=== PATIENT | male | born 1965 | race Caucasian/White ===

== ENCOUNTER 2019-12-05 17:26 | Inpatient (IN) | payer MEDICARE, OTHER ==
[~2019-12-05] VITALS: Ht 167.6 cm; Wt 90.7 kg
[2019-12-05] MEDS ORDERED: ACETAMINOPHEN ES 500 MG TABLET ONE (17:35)
[2019-12-05] MEDS ORDERED: ACETAMINOPHEN 325 MG TABLET PO ONE (17:45)
[2019-12-05 17:48] LABS: BASOPHILS % (AUTO) 0.3 % (0.0-2.0); HEMATOCRIT 38.1 % (36.7-47.1); HEMOGLOBIN 12.6 g/dL (12.5-16.3); LYMPHOCYTES # (AUTO) 0.6 K/uL (20.0-40.0); LYMPHOCYTES % (AUTO) 4.7 % (20.5-51.5); MEAN CORPUSCULAR HEMOGLOBIN 27.3 uug (23.8-33.4); MEAN CORPUSCULAR HGB CONC 33 g/dL (32.5-36.3); MEAN CORPUSCULAR VOLUME 82.5 fL (73.0-96.2); MONOCYTES # (AUTO) 1.2 K/uL (2.0-10.0); MONOCYTES % (AUTO) 9.3 % (0.0-11.0); NEUTROPHILS % (AUTO) 85.7 % (38.5-71.5); PLATELET COUNT (AUTO) 215 K/uL (152-348); RED BLOOD CELL COUNT(AUTO) 4.62 MIL/uL (4.06-5.63); WHITE BLOOD COUNT (AUTO) 12.9 K/uL (3.6-10.2)
[2019-12-05 17:54] LABS: CARBON DIOXIDE 25 mmol/L (21-32); CHLORIDE 102 mmol/L (98-107); GLUCOSE 224 mg/dL (74-106); POTASSIUM 3.7 mmol/L (3.5-5.1); UREA NITROGEN, BLOOD 16 mg/dL (7-18)
[2019-12-05 17:59] LABS: ETHANOL < 3 MG/DL (0-0)
--- NOTE | 2019-12-05 18:01 | NUR ---
Patient attempted to void by urinal for urine specimen, no urine@this time.
[2019-12-05 18:07] LABS: ALANINE AMINOTRANSFERASE 20 U/L (16-63); ALKALINE PHOSPHATASE 52 U/L (50-136); ASPARTATE AMINOTRANSFERASE 19 U/L (15-37); BILIRUBIN,DIRECT 0.1 mg/dL (0.0-0.2); BILIRUBIN,TOTAL 0.6 mg/dL (0.2-1.0); TOTAL PROTEIN, SERUM 7.5 g/dL (6.4-8.2)
[2019-12-05 18:10] LABS: ACETAMINOPHEN < 2.0 ug/mL (10-30)
--- NOTE | 2019-12-05 18:12 | NUR ---
Patient is eating dinner tray with good appetite.
--- NOTE | 2019-12-05 18:47 | NUR ---
Still for urine specimen, water and no suger-juice provided.
--- NOTE | 2019-12-05 18:51 | NUR ---
Patient is brushing his teeth.
--- NOTE | 2019-12-05 19:04 | NUR ---
Patient in bed, no acute distress noted. vss
--- NOTE | 2019-12-05 19:51 | NUR ---
Brothers Number (Ppocv)
[2019-12-05 19:57] LABS: *BILIRUBIN,URIN 1+ (NEGATIVE); *CLARITY,URINE CLOUDY (CLEAR); *COLOR,URINE DARK YELLOW (YELLOW); *KETONES,URINE TRACE (NEGATIVE); *UROBILINOGEN,URINE 0.2 E.U./dl (NORMAL); LEUKOCYTE ESTERASE ,URINE TRACE (NEGATIVE); NITRITE, URINE NEGATIVE (NEGATIVE); PH,URINE 5.5 (5.0-8.0); UGLUCOSE NEGATIVE (NEGATIVE)
[2019-12-05 20:00] LABS: *BLOOD, URINE TRACE (NEGATIVE)
[2019-12-05 20:02] LABS: SQUAMOUS EPITHELIAL CELL,UR FEW /HPF (NONE SEEN)
[2019-12-05 20:03] LABS: CALCIUM OXALATE CRYSTALS,UR FEW /HPF (NONE SEEN); COARSE GRANULAR CASTS,URINE 0-3 /LPF; MUCUS,URINE MANY /LPF (0-FEW); URINE AMORPHOUS URATE MODERATE /HPF
--- NOTE | 2019-12-05 20:03 | NUR ---
Patient in bed, no acute distress noted. VSS
[2019-12-05 20:06] LABS: *AMPHETAMINE, URINE NEGATIVE (NEGATIVE); *BARBITURATE, URINE NEGATIVE (NEGATIVE); *CANNABINOID, URINE NEGATIVE (NEGATIVE); *COCCAINE, URINE NEGATIVE (NEGATIVE); *OPIATE, URINE NEGATIVE (NEGATIVE); *PHENCYCLIDINE SCREEN,URINE NEGATIVE (NEGATIVE)
--- NOTE | 2019-12-05 20:15 | NUR ---
Called Ashely @ [phone]. Notified her that we need crisis eval for this patient.
--- NOTE | 2019-12-05 20:32 | NUR ---
Spoke to Dea COLLIER, she is coming to evaluate the patient. U is expecting this patient.
--- NOTE | 2019-12-05 20:47 | NUR ---
Security called for standby due to patient frequently leaving his ER room, walking into other patients rooms, and not following staff safety instructons.
[2019-12-05] MEDS ORDERED: OLANZAPINE 5 MG TABLET PO ONE (21:15)
[2019-12-05] MEDS ORDERED: OLANZAPINE 5 MG TABLET ONE (21:15)
--- NOTE | 2019-12-05 21:22 | NUR ---
Report given to Anneliese SAWANT
[2019-12-05] MEDS ORDERED: MAGNESIUM HYDROXIDE 30 ML LIQUID UDC PO PRN (22:00)
[2019-12-05] MEDS ORDERED: MAG HYDROX/AL HYDROX/SIMETH 30 ML LIQUID UDC PO PRN (22:00)
[2019-12-05] MEDS ORDERED: ACETAMINOPHEN 325 MG TABLET PO PRN (22:00)
[2019-12-05 22:20] VITALS: BP 116/68
--- NOTE | 2019-12-05 23:00 | NUR ---
RECEIVED PATIENT FROM [facility] AT 21:00 ON A GURNEY ON A 72HOUR HOLD. DR MCLAIN IS THE PSYCHIATRIST AND DR FALL IS THE AUDIO TECHNICIAN. HE IS A/O X3 AND AMBULATORY.HE CAME FROM [facility] AND WAS SAID TO BE EASILY ANGERED, THREW WATER AT STAFF AND PATIENTS AND BECAME INCREASINGLY AGITATED.HE ADMITTED TO SOME OF THE ABOVE BUT EXPLAINED THAT 'THEY SAY OFFENSIVE THINGS TO ME WHICH MAKE THE SITUATION UNBEARABLE" HE DENIES HEARING VOICES OR BEING SUICIDAL. HE AGREED TO CONTRACT FOR SAFETY, AND WAS ADVISED OF THE HOLD, AND GPS PACKET GIVEN. SKIN INTACT EXCEPT FOR 2 SMALL ABRASIONS ON THE LEFT INDEX AND AND MIDDLE FINGERS.ZOLPIDEM 10MG AT 23;10.PATIENT THEN WENT TO SLEEP THEREAFTER. VISUAL CHECKS MADE ON HIM FOR SAFETY.
[2019-12-05] MEDS: ZOLPIDEM 5 MG TABLET PO PRN (23:12)
[2019-12-06] MEDS: LORAZEPAM 1 MG TABLET PO PRN ×2 (04:31→14:33)
--- NOTE | 2019-12-06 06:31 | NUR ---
PATIENT SLEPT FOR ABOUT TILL 4;00 HRS WHEN HE STARTED PACING AND MAKING REQUESTS TO MAKE PHONE CALLS, WATCH TV,LISTEN TO MUSIC AND BEING AGITATED. HE WAS GIVEN TAB ATIVAN AT 04;30.WE ALSO CALLED DR MARIE FROM [facility] AT 22;30 AND HE PROMISED TO RECONCILE THE MEDICATIONS. BUT ITS ITS STILL NOT YET IN.
[2019-12-06 08:30] VITALS: BP 103/69
[2019-12-06] MEDS: CEphaleXIN 500 MG CAPSULE PO SCH ×2 (13:45→17:00)
[2019-12-06] MEDS: busPIRone 5 MG TABLET PO SCH ×2 (14:15→17:00)
[2019-12-06] MEDS ORDERED: BISACODYL 10 MG SUPP.RECT RC PRN (15:15)
[2019-12-06] MEDS ORDERED: TRAMADOL HCL 50 MG TABLET PO PRN (15:15)
[2019-12-06] MEDS ORDERED: MAGNESIUM HYDROXIDE 30 ML LIQUID UDC PO PRN (15:15)
[2019-12-06] MEDS ORDERED: ONDANSETRON HCL 4 MG TABLET PO PRN (15:15)
[2019-12-06] MEDS ORDERED: MAG HYDROX/AL HYDROX/SIMETH 30 ML LIQUID UDC PO PRN (15:15)
[2019-12-06] MEDS ORDERED: FLEET ENEMA 133 ML BOTTLE RC PRN (15:15)
[2019-12-06] MEDS ORDERED: ACETAMINOPHEN 325 MG TABLET PO PRN (15:15)
[2019-12-06 15:47] VITALS: BP 132/78
[2019-12-06] MEDS: METFORMIN HCL 850 MG TABLET PO SCH (17:00)
[2019-12-06] MEDS: METOPROLOL TARTRATE 25 MG TABLET PO SCH (17:00)
[2019-12-06] MEDS: CLONAZEPAM 0.5 MG TABLET PO SCH (17:00)
[2019-12-06 20:00] VITALS: BP 123/75
[2019-12-06] MEDS: ATORVASTATIN 10 MG TABLET PO SCH (20:12)
[2019-12-06] MEDS: SENNOSIDES 1 TABLET PO SCH (20:12)
[2019-12-06] MEDS ORDERED: CLOZAPINE 100 MG TABLET PO SCH ×2 (21:00)
[2019-12-06] MEDS ORDERED: CLOZAPINE 25 MG TABLET PO SCH (21:00)
--- NOTE | 2019-12-07 06:59 | NUR ---
Received Pt pacing the unit appearing internally preoccupied. Uncooperative, Pt refused his HS medications and became angry and upset when redirected. Pt paced the unit most of the shift. Pt was guarded and gave minimal disclosure. VS stable, denies pain.
[2019-12-07 07:30] VITALS: BP 113/74
[2019-12-07] MEDS: CLONAZEPAM 0.5 MG TABLET PO SCH ×3 (08:23→17:00)
[2019-12-07] MEDS: METFORMIN HCL 850 MG TABLET PO SCH ×2 (08:23→17:00)
[2019-12-07] MEDS: CEphaleXIN 500 MG CAPSULE PO SCH ×2 (08:23→17:00)
[2019-12-07] MEDS: METOPROLOL TARTRATE 25 MG TABLET PO SCH ×2 (08:23→17:00)
[2019-12-07] MEDS: DOCUSATE SODIUM 100 MG CAPSULE PO SCH (08:23)
[2019-12-07] MEDS: busPIRone 5 MG TABLET PO SCH ×3 (08:23→17:00)
[2019-12-07] MEDS: CLOZAPINE 25 MG TABLET PO SCH (09:00)
--- NOTE | 2019-12-07 11:27 | NUR ---
Social Work Initial Discharge Note: Pt currently resides at [facility] located at [address] [place] [address] ([phone]). Patient would like to return to the facility. SW will continue to work with patient, family, MD to form a safe and proper discharge.
--- NOTE | 2019-12-07 11:30 | NUR ---
Social Work Family Contact: Topstitcher Zigzag called patient's brother, Jeremy Baxter ([phone]) to collect collateral information and left a voicemail for return call.
--- NOTE | 2019-12-07 11:52 | NUR ---
Social Work Firearms Report ([employer]): Bee Keeper completed and submitted a [employer] firearms report for 5150 grave disability certification. A copy of report has been placed in patient chart.
[2019-12-07] MEDS ORDERED: DEXTROSE 50% 50 ML DISP.SYRIN IV PRN (12:45)
[2019-12-07 15:36] VITALS: BP 114/72
[2019-12-07] MEDS: BLOOD SUGAR DIAGNOSTIC 1 EACH STRIP VI SCH ×2 (16:30→21:00)
--- NOTE | 2019-12-07 16:45 | NUR ---
GPS: Nursing Notes: Thought Disorder: Patient is awake and responding to his name, episodes of pacing on the hallway, angry affect at times, refusing to participate in therapeutic groups, evasive when questioned by staff, gets easily irritable when medications are offer to him, stating "I do not take medications... No, I don't want them..", unpredictable behavior at times, unable to formulate a viable plan for self care, continue to monitor for safety, gets easily angry when redirected, continue to refuse his medications, explained the pros and cons of medications, continue with treatment plan.
[2019-12-07 20:32] VITALS: BP 110/68
[2019-12-07] MEDS: SENNOSIDES 1 TABLET PO SCH (21:00)
[2019-12-07] MEDS: CLOZAPINE 100 MG TABLET PO SCH (21:00)
[2019-12-07] MEDS: ATORVASTATIN 10 MG TABLET PO SCH (21:00)
--- NOTE | 2019-12-07 22:00 | NUR ---
received to care, pacing the unit intermittently, appearing distracted by internal stimuli. pt refused his blood sugar check and all medications. he became angry and upset when redirected. he was attempting to rogers water bottles in his room. he had 5 already, and requested 2 more. staff set limits on this behavior, and he again became agitated. as of 2199, he continues to pace intermittently. he is guarded and gives minimal disclosure. has occasional verbal outbursts, but is directable, either by staff, or with help of hospital security. continues to refuse medications, and become hostile when redirected. will continue to monitor closely.
--- NOTE | 2019-12-08 06:00 | NUR ---
slept 4 hours, total. Addendum: 12/08/19 at 0657 by TOPHER MCLAUGHLIN LVN CORRECTION/ SLEPT 2 HOURS
[2019-12-08] MEDS: BLOOD SUGAR DIAGNOSTIC 1 EACH STRIP VI SCH ×4 (06:52→21:00)
--- NOTE | 2019-12-08 06:54 | NUR ---
refused am blood sugar check
[2019-12-08] MEDS: CLOZAPINE 25 MG TABLET PO SCH ×2 (08:20→08:30)
[2019-12-08] MEDS: CEphaleXIN 500 MG CAPSULE PO SCH ×3 (08:20→16:37)
[2019-12-08] MEDS: CLONAZEPAM 0.5 MG TABLET PO SCH ×4 (08:22→16:37)
[2019-12-08] MEDS: DOCUSATE SODIUM 100 MG CAPSULE PO SCH ×2 (08:22→08:30)
[2019-12-08] MEDS: busPIRone 5 MG TABLET PO SCH ×4 (08:22→16:36)
[2019-12-08] MEDS: METFORMIN HCL 850 MG TABLET PO SCH ×3 (08:26→16:37)
[2019-12-08] MEDS: METOPROLOL TARTRATE 25 MG TABLET PO SCH ×3 (08:26→16:37)
--- NOTE | 2019-12-08 08:31 | NUR ---
Patient refuse medicine despite of education and encouragement on taking medication. MD De Luna made aware. MD will order injection medicine. awaiting for order. Addendum: 12/08/19 at 1236 by ROOSEVELT ALEGRIA RN RN awaiting for JAKOB order.
[2019-12-08 10:00] VITALS: BP 107/66
--- NOTE | 2019-12-08 12:11 | NUR ---
Social Work Family Contact: Engraver received a voicemail from patient's brother, Jeremy Baxter ([phone]) returning my call from yesterday, however this designer/writer called Jeremy back and unable to reach again. Left a voicemail for a return call.
--- NOTE | 2019-12-08 12:32 | NUR ---
Patient continue to refuse medication for this time due despite of education. no signs of agitation or behavioral problem. will continue monitor
--- NOTE | 2019-12-08 13:25 | NUR ---
Social Work Family Contact: Plant Manager spoke with patient's brother, Jeremy Baxter ([phone]) and collected collateral information. Jeremy stated he is the patient's healthcare POA and will be providing this data analyst report writer with the documentations. This data analyst report writer informed Jeremy of the riese petition as the patient has been refusing medications since his admission. Jeremy was understanding and stated that "he will decline if you don't do that so yes that's okay".
[2019-12-08 16:24] VITALS: BP 105/74
--- NOTE | 2019-12-08 16:37 | NUR ---
Patient screams while walking in the hallway, verbalize that he hears voices. did not specify what the voices telling him. offered food and agree to it. change also room to be more quiet and peaceful with good effect. refuse the afternoon medication despite of education and encouragement. no agitation noted. will continue monitor
[2019-12-08 20:30] VITALS: BP 116/66
[2019-12-08] MEDS: ATORVASTATIN 10 MG TABLET PO SCH (21:00)
[2019-12-08] MEDS: CLOZAPINE 100 MG TABLET PO SCH (21:00)
[2019-12-08] MEDS: SENNOSIDES 1 TABLET PO SCH (21:00)
--- NOTE | 2019-12-08 22:00 | NUR ---
received to care, pleasant upon approach, isolative, talking to self, intermittently yelling and screaming. continues to refuse medications and all treatments, including blood sugar check. no episodes of being aggressive towards staff. paces hallway intermittently. no distress noted. will continue to monitor closely.
[2019-12-09] MEDS: BLOOD SUGAR DIAGNOSTIC 1 EACH STRIP VI SCH ×4 (06:55→21:00)
--- NOTE | 2019-12-09 06:55 | NUR ---
slept fairly well. continues to sleep. refused am accucheck.
[2019-12-09 07:30] VITALS: BP 109/68
[2019-12-09 07:38] LABS: BASOPHILS # (AUTO) 0.1 K/uL (0.0-8.0); BASOPHILS % (AUTO) 1.1 % (0.0-2.0); EOSINOPHILS # (AUTO) 0.1 K/uL (0.0-0.7); EOSINOPHILS % (AUTO) 1.7 % (0.0-7.0); HEMATOCRIT 36.7 % (36.7-47.1); HEMOGLOBIN 12.1 g/dL (12.5-16.3); LYMPHOCYTES # (AUTO) 1.4 K/uL (20.0-40.0); LYMPHOCYTES % (AUTO) 22.7 % (20.5-51.5); MEAN CORPUSCULAR HEMOGLOBIN 27.2 uug (23.8-33.4); MEAN CORPUSCULAR HGB CONC 33 g/dL (32.5-36.3); MEAN CORPUSCULAR VOLUME 82.9 fL (73.0-96.2); MONOCYTES # (AUTO) 0.9 K/uL (2.0-10.0); MONOCYTES % (AUTO) 14.1 % (0.0-11.0); NEUTROPHILS # (AUTO) 3.7 K/uL (1.8-8.9); NEUTROPHILS % (AUTO) 60.4 % (38.5-71.5); PLATELET COUNT (AUTO) 244 K/uL (152-348); RED BLOOD CELL COUNT(AUTO) 4.43 MIL/uL (4.06-5.63); WHITE BLOOD COUNT (AUTO) 6.1 K/uL (3.6-10.2)
[2019-12-09 07:48] LABS: CREATININE 0.7 mg/dL (0.6-1.3); MAGNESIUM 1.8 mg/dL (1.8-2.4); PHOSPHOROUS 3.9 mg/dL (2.5-4.9); POTASSIUM 3.7 mmol/L (3.5-5.1)
[2019-12-09] MEDS: DOCUSATE SODIUM 100 MG CAPSULE PO SCH (09:00)
[2019-12-09] MEDS: METFORMIN HCL 850 MG TABLET PO SCH ×2 (09:00→16:36)
[2019-12-09] MEDS: busPIRone 5 MG TABLET PO SCH ×3 (09:00→16:36)
[2019-12-09] MEDS: CEphaleXIN 500 MG CAPSULE PO SCH ×2 (09:00→16:36)
[2019-12-09] MEDS: CLOZAPINE 25 MG TABLET PO SCH (09:00)
[2019-12-09] MEDS: CLONAZEPAM 0.5 MG TABLET PO SCH ×3 (09:00→16:36)
[2019-12-09] MEDS: METOPROLOL TARTRATE 25 MG TABLET PO SCH ×2 (09:00→16:36)
[2019-12-09] MEDS ORDERED: LORAZEPAM 2 MG/1 ML VIAL IM ONE (18:15)
[2019-12-09] MEDS ORDERED: OLANZAPINE 10 MG VIAL IM ONE (18:15)
--- NOTE | 2019-12-09 18:32 | NUR ---
Pt was served dinner in his room. later patient came out of his room and threw the dinner tray across the hallway without any provocation. Addendum: 12/09/19 at 1837 by LUCIO CHAVARRIA RN Dr. De Luna was contacted, order for Ativan 2 mg and Zyprexa 10 mg IM was obtained. Security was present. Pt was asked to lay down. Pt was quiet and stood up and charged at the information security engineer. Alexx, the information security engineer was able to grab patients arms and have him lay down. Pt is in his bed. quiet at this time.
[2019-12-09] MEDS ORDERED: diphenhydrAMINE 50 MG/1 ML VIAL IM ONE (19:45)
[2019-12-09] MEDS ORDERED: HALOPERIDOL LACTATE 5 MG/1 ML VIAL IM ONE (19:45)
[2019-12-09] MEDS: ATORVASTATIN 10 MG TABLET PO SCH (21:00)
[2019-12-09] MEDS: CLOZAPINE 100 MG TABLET PO SCH (21:00)
[2019-12-09] MEDS: SENNOSIDES 1 TABLET PO SCH (21:00)
--- NOTE | 2019-12-10 05:48 | NUR ---
GPS/NSG Chemical Restraint Patient first observed in room awake with staff blocking pt's attempt to assault him. Security called to the unit to assist, patient had charged at staff when staff was attempting to obtain vital signs at the beginning of the shift. Patient was yelling, and did not follow redirection, continued to make attempts to strike at staff. Psychiatrist informed, order obtained. Administered IM as ordered, monitored for adverse reactions, patient tolerated IM well no signs of discomfort or distress noted. Patient was visible on the unit and was observed pacing hallway. Patient refused HS medication, refused vital signs, blood sugar check. Patient appeared to have slept through night, observed pacing the unit hallway this a.m. with flat affect and low mood, making several requests from nursing staff. Will continue to monitor closely for safety.
[2019-12-10 08:00] VITALS: BP 130/68
--- NOTE | 2019-12-10 08:08 | NUR ---
Gps/Press Hand Supervisor- B/P 130/68, )2 sat.98%, HR 124,resp.18 ,BS checked 235
[2019-12-10] MEDS ORDERED: diphenhydrAMINE 50 MG/1 ML VIAL IM ONE (08:15)
[2019-12-10] MEDS ORDERED: HALOPERIDOL LACTATE 5 MG/1 ML VIAL IM ONE (08:15)
[2019-12-10] MEDS ORDERED: LORAZEPAM 2 MG/1 ML VIAL IM ONE (08:15)
--- NOTE | 2019-12-10 08:15 | NUR ---
Gps/Lnv -Patient kept pulling emergency button in the dinning room, discouraged from doing so, patient thew thrash can in the Nurses station. threw brakfast tray on the hallway. lM stevens was called. Dr De Luna was called by charge Nurse, informed of behavior, orders received. Patient also noted pushed Linseed Oil Refiner while standing by the Nurses station. Patient was put in the seclusion room Four point restraint was applied by team. Monitored V/S.
--- NOTE | 2019-12-10 08:20 | NUR ---
Dr. De Luna called regarding patient out of control, throwing trash to nurses station, opening cabinets and pulled the contents, throwing his food tray on the floor and pushing physical security manager. MD ordered 4 point restraint. Monitored patient behavior and release one restraint q 15mins. Patient awake with periods of yelling and screaming.
[2019-12-10] MEDS: BLOOD SUGAR DIAGNOSTIC 1 EACH STRIP VI SCH ×4 (08:50→20:23)
[2019-12-10] MEDS: METFORMIN HCL 850 MG TABLET PO SCH ×2 (09:15→17:00)
[2019-12-10] MEDS: busPIRone 5 MG TABLET PO SCH ×3 (09:15→17:00)
[2019-12-10] MEDS: CEphaleXIN 500 MG CAPSULE PO SCH ×2 (09:15→17:00)
[2019-12-10] MEDS: DOCUSATE SODIUM 100 MG CAPSULE PO SCH (09:16)
[2019-12-10] MEDS: CLONAZEPAM 0.5 MG TABLET PO SCH ×2 (09:16→12:31)
[2019-12-10] MEDS: METOPROLOL TARTRATE 25 MG TABLET PO SCH ×2 (09:17→17:00)
[2019-12-10] MEDS: CLOZAPINE 25 MG TABLET PO SCH ×3 (09:21→17:00)
[2019-12-10] MEDS: INSULIN REGULAR, HUMAN 300 UNIT/3 ML VIAL SQ PRN ×4 (09:32→20:32)
--- NOTE | 2019-12-10 10:29 | NUR ---
Gps/Repairer- Restraints were released at intervals, circulations checked per policy. Patient was fed by CARPENTER REPAIRER adequate fluids offered. took routine am. meds, spits some , re offered. . Noted patient couple of time tries to get out of his restraints. yells, , calling out..Continue to monitor safety./behavior
--- NOTE | 2019-12-10 10:32 | NUR ---
Social Work Individual Therapy Note: Oxygen Equipment Technician attempted to provide brief individual supportive counseling. Patient has been exhibiting combative and aggressive behaviors towards the staff and security. Patient is very labile and unpredictable. Oxygen Equipment Technician will remain available to patient and continue to attempt to provide supportive counseling.
--- NOTE | 2019-12-10 11:29 | NUR ---
Gps/Customer Support Specialist- Agitated, yelling calling out, " get me out of here", cursing, wiggling, , sliding, safety emphasized, monitored closely, fluids offered .trying to get off his restraints
[2019-12-10] MEDS: LORAZEPAM 1 MG TABLET PO PRN (11:42)
--- NOTE | 2019-12-10 12:18 | NUR ---
Gps/Gas Pumper- Patient came off the seclusion room, Dr De Luna in to see patient. Reviewed safety/ behavior, was able to allow staff to check his BS before lunch. Eating lunch, asking for bottled water.
--- NOTE | 2019-12-10 15:30 | NUR ---
Gps/Real Estate Rep- Patient has 1:1 Nursing supervision for safety . Patient Fell asleep at this time.Continue to monitor behavior.
[2019-12-10] MEDS: DIVALPROEX 250 MG TABLET.DR PO SCH ×2 (17:00→20:18)
--- NOTE | 2019-12-10 17:34 | NUR ---
Gps/Beet End Supervisor- Remains asleep at this time , will reoffer meds. at a later time
[2019-12-10] MEDS: HALOPERIDOL LACTATE 5 MG/1 ML VIAL IM PRN ×2 (18:21→20:19)
[2019-12-10] MEDS: diphenhydrAMINE 50 MG/1 ML VIAL IM PRN ×2 (18:21→20:19)
--- NOTE | 2019-12-10 18:30 | NUR ---
Gps/Animal Feeder- Awakened for dinner, fluids offered as requested, offered pm meds.,as ordered, refused stated" no more medications ok?", informed patient about his reise, if her refused his psych.meds. he will received a shot .Called Piano Bench Assembler to assist staff in administering IM medications.
[2019-12-10] MEDS: CLOZAPINE 100 MG TABLET PO SCH (20:18)
[2019-12-10] MEDS: ATORVASTATIN 10 MG TABLET PO SCH (20:18)
[2019-12-10] MEDS: SENNOSIDES 1 TABLET PO SCH (20:18)
[2019-12-10 20:29] VITALS: BP 109/72
--- NOTE | 2019-12-11 01:34 | NUR ---
GPS: Pt.remains awake at this time. Unable to fall asleep. Refused sleeping pill for insomnia when offered numerous times despite explanation of risks vs.benefits x3. Continues to be labile,unpredictable and testing limits. 1:1 sitter as ordered due to aggressive behavior. Needs frequent re-direction from staff. Continues to hear voices but refuses to elaborate. Quiet environment provided to facilitate sleep. Behavior monitoring continues.
[2019-12-11] MEDS: BLOOD SUGAR DIAGNOSTIC 1 EACH STRIP VI SCH ×4 (06:39→20:50)
[2019-12-11 07:30] VITALS: BP 117/72
[2019-12-11] MEDS: DIVALPROEX 250 MG TABLET.DR PO SCH ×4 (09:00→20:37)
[2019-12-11] MEDS: busPIRone 5 MG TABLET PO SCH ×3 (09:00→17:00)
[2019-12-11] MEDS: METOPROLOL TARTRATE 25 MG TABLET PO SCH ×2 (09:00→17:00)
[2019-12-11] MEDS: DOCUSATE SODIUM 100 MG CAPSULE PO SCH (09:00)
[2019-12-11] MEDS: CLOZAPINE 25 MG TABLET PO SCH ×3 (09:00→17:00)
[2019-12-11] MEDS: METFORMIN HCL 850 MG TABLET PO SCH ×2 (09:00→17:00)
[2019-12-11] MEDS: diphenhydrAMINE 50 MG/1 ML VIAL IM PRN ×4 (09:41→20:49)
[2019-12-11] MEDS: HALOPERIDOL LACTATE 5 MG/1 ML VIAL IM PRN ×4 (09:41→20:49)
[2019-12-11] MEDS: INSULIN REGULAR, HUMAN 300 UNIT/3 ML VIAL SQ PRN (12:06)
[2019-12-11 16:21] VITALS: BP_SYST 128; BP_DIAS 44; BP_DIAS 49
[2019-12-11] MEDS: ATORVASTATIN 10 MG TABLET PO SCH (20:37)
[2019-12-11] MEDS: CLOZAPINE 100 MG TABLET PO SCH (20:37)
[2019-12-11] MEDS: SENNOSIDES 1 TABLET PO SCH (20:37)
[2019-12-11 21:10] VITALS: BP 117/79
[2019-12-12] MEDS: BLOOD SUGAR DIAGNOSTIC 1 EACH STRIP VI SCH ×4 (06:40→20:20)
[2019-12-12 07:30] VITALS: BP 110/73
[2019-12-12] MEDS: CLOZAPINE 25 MG TABLET PO SCH ×3 (08:32→17:00)
[2019-12-12] MEDS: DOCUSATE SODIUM 100 MG CAPSULE PO SCH (08:39)
[2019-12-12] MEDS: busPIRone 5 MG TABLET PO SCH ×3 (08:39→17:00)
[2019-12-12] MEDS: METFORMIN HCL 850 MG TABLET PO SCH ×2 (08:39→17:00)
[2019-12-12] MEDS: DIVALPROEX 250 MG TABLET.DR PO SCH ×4 (08:39→20:20)
[2019-12-12] MEDS: METOPROLOL TARTRATE 25 MG TABLET PO SCH ×2 (08:40→17:00)
--- NOTE | 2019-12-12 11:30 | NUR ---
PT NOTED AGITATED AT THIS TIME. INTERNALLY PREOCCUPIED. FREQUENTLY PACES UNIT. 1:1 SITTER WITH PT AT ALL TIMES. PT FREQUENTLY ASKS FOR BOTTLE WATER, PENCILS, SOCKS, ETC EVEN THOUGH HE HAS THEM IN HIS ROOM. WHEN INFORMING HIM HE HAS ALL ITEMS IN HIS ROOM, PT STATES "JUST GIVE ME ONE MORE. I NEED ONE MORE." PT HAD EPISODE OF AGGRESSIVE BEHAVIOR AT THIS TIME. ASKED FOR PHONE TO CALL HIS BROTHER. ADOPTION SPECIALIST GAVE HIM THE PORTABLE PHONE AND HE THREW IT ACROSS THE ROOM. CONTINUE TO SET BOUNDARIES AND PROVIDE REDIRECTION WITH SITTER PRESENT.
--- NOTE | 2019-12-12 11:37 | NUR ---
Gps/County Ordinary- Anxious, figity, restless, pacing, asking for the phone, when given to his per sitter, threw phone in the Nurses station. Patient redirected back to his some. Requesting food, snacks and bottled water none stop, setting limits observed. Patient went back to his room, refusing to talk, angry affect, flat,Monitored behavior.Remains with 1:1 Nursing supervision.
[2019-12-12] MEDS: HALOPERIDOL LACTATE 5 MG/1 ML VIAL IM PRN ×2 (12:39→17:20)
[2019-12-12] MEDS: diphenhydrAMINE 50 MG/1 ML VIAL IM PRN ×2 (12:40→17:23)
[2019-12-12 16:00] VITALS: BP 109/74
[2019-12-12] MEDS: INSULIN REGULAR, HUMAN 300 UNIT/3 ML VIAL SQ PRN ×2 (17:19→20:25)
--- NOTE | 2019-12-12 17:33 | NUR ---
Gps/Ship Engineer- Reoffered routine pm meds. patient, refused,, informed patient her will received IM med. if he refused, claimed " i dont need any injections" . Called Security Guards to assist staff in admnistering his IM meds. Patient does not turn nor follow directions when requested to turn over his left side, pretending unable to moved.
[2019-12-12 20:00] VITALS: BP 117/85
[2019-12-12] MEDS: CLOZAPINE 100 MG TABLET PO SCH (20:20)
[2019-12-12] MEDS: ATORVASTATIN 10 MG TABLET PO SCH (20:22)
[2019-12-12] MEDS: SENNOSIDES 1 TABLET PO SCH (20:22)
[2019-12-12] MEDS: LORAZEPAM 1 MG TABLET PO PRN (22:01)
[2019-12-12] MEDS: ZOLPIDEM 5 MG TABLET PO PRN (23:04)
[2019-12-13] MEDS: BLOOD SUGAR DIAGNOSTIC 1 EACH STRIP VI SCH ×4 (06:51→21:00)
[2019-12-13 07:30] VITALS: BP 132/75
--- NOTE | 2019-12-13 07:44 | NUR ---
Gps/Masonry Contractor Administrator- Awake, smiling, claimed happy he got another t-shirt. Claimed he slept better, and promised he will take all his routine medications as ordered . Interacting more with the staff. Encouraged continued verbalizations of his needs and feelings.
[2019-12-13] MEDS: METOPROLOL TARTRATE 25 MG TABLET PO SCH ×2 (08:10→16:25)
[2019-12-13] MEDS: CLOZAPINE 25 MG TABLET PO SCH ×3 (08:10→16:24)
[2019-12-13] MEDS: DOCUSATE SODIUM 100 MG CAPSULE PO SCH (08:10)
[2019-12-13] MEDS: busPIRone 5 MG TABLET PO SCH ×3 (08:10→16:25)
[2019-12-13] MEDS: DIVALPROEX 250 MG TABLET.DR PO SCH ×4 (08:10→21:16)
[2019-12-13] MEDS: METFORMIN HCL 850 MG TABLET PO SCH ×2 (08:11→16:33)
--- NOTE | 2019-12-13 09:12 | NUR ---
Gps/Beauty Parlor Cleaner- Standing on the hallway, looking down on the floor ,staring, yelling spells noted, when asked why he was yelling claimed " nothing" Remains on 1:1 Nursing supervision for safety,monitoring his behavior.
[2019-12-13] MEDS: LORAZEPAM 1 MG TABLET PO PRN ×2 (09:34→20:16)
[2019-12-13 10:23] LABS: BASOPHILS # (AUTO) 0.1 K/uL (0.0-8.0); BASOPHILS % (AUTO) 0.8 % (0.0-2.0); EOSINOPHILS # (AUTO) 0.1 K/uL (0.0-0.7); EOSINOPHILS % (AUTO) 0.6 % (0.0-7.0); HEMOGLOBIN 13.1 g/dL (12.5-16.3); LYMPHOCYTES # (AUTO) 1.5 K/uL (20.0-40.0); LYMPHOCYTES % (AUTO) 16.2 % (20.5-51.5); MEAN CORPUSCULAR HEMOGLOBIN 27.3 uug (23.8-33.4); MEAN CORPUSCULAR HGB CONC 33 g/dL (32.5-36.3); MEAN CORPUSCULAR VOLUME 83.4 fL (73.0-96.2); MONOCYTES # (AUTO) 0.9 K/uL (2.0-10.0); NEUTROPHILS # (AUTO) 6.6 K/uL (1.8-8.9); NEUTROPHILS % (AUTO) 72.4 % (38.5-71.5); PLATELET COUNT (AUTO) 267 K/uL (152-348); WHITE BLOOD COUNT (AUTO) 9.1 K/uL (3.6-10.2)
--- NOTE | 2019-12-13 10:29 | NUR ---
Gps/Developer Evangelist- Refused insulin sliding scale coverage this am, explained to patient the need to admnister insulin coverage, still refused. Patient was able to let Lab.Tech. to draw blood works this am, after lots of encouragement.
--- NOTE | 2019-12-13 12:02 | NUR ---
Gps/Batch Records Clerk-BS 178, pt. refused sliding scale coverige, , but will take routine pm meds./pt.
--- NOTE | 2019-12-13 14:41 | NUR ---
Gps/Ham Curer- Attending his group therapy, had been cooperative , interacting fairly well,, noted easily gets anxious but redirectable.
[2019-12-13 16:00] VITALS: BP 124/73
--- NOTE | 2019-12-13 17:49 | NUR ---
Gps/Car Top Bolter- Remains on 1:1 Nursing supervision, , occ. noted standing still, looking down ,internally preoccupied, occ. yelling spells, but had been redirectable, verbalized needs, and had been compliant with routine meds. , told staff to not to stand too close to him, her needs to concentrate in taking his routine meds. Stayed in the activity room most of the afternoon..
[2019-12-13] MEDS: SENNOSIDES 1 TABLET PO SCH (20:17)
[2019-12-13] MEDS: ATORVASTATIN 10 MG TABLET PO SCH (20:17)
[2019-12-13 20:45] VITALS: BP 132/87
[2019-12-13] MEDS: CLOZAPINE 100 MG TABLET PO SCH (21:16)
--- NOTE | 2019-12-13 23:00 | NUR ---
received to care, isolative, but pleasant upon approach. 1;1 sitter remains at side, for safety. remains appearing preoccupied by internal stimuli,but had no episodes of agitation. compliant with all medications, except for accucheck. as of 2299, he appears asleep. no dsitress noted. sitter remains at side.
--- NOTE | 2019-12-14 06:00 | NUR ---
slept 3.5 hours. continues to sleep. sitter remains at side. no distress noted.
[2019-12-14] MEDS: BLOOD SUGAR DIAGNOSTIC 1 EACH STRIP VI SCH ×4 (07:03→21:14)
[2019-12-14 07:30] VITALS: BP 117/69
[2019-12-14] MEDS: busPIRone 5 MG TABLET PO SCH ×3 (09:27→16:40)
[2019-12-14] MEDS: CLOZAPINE 25 MG TABLET PO SCH ×3 (09:28→16:40)
[2019-12-14] MEDS: DIVALPROEX 250 MG TABLET.DR PO SCH ×4 (09:28→20:39)
[2019-12-14] MEDS: DOCUSATE SODIUM 100 MG CAPSULE PO SCH (09:28)
[2019-12-14] MEDS: METFORMIN HCL 850 MG TABLET PO SCH ×2 (09:28→16:40)
[2019-12-14] MEDS: METOPROLOL TARTRATE 25 MG TABLET PO SCH ×2 (09:29→16:40)
--- NOTE | 2019-12-14 10:50 | NUR ---
Social Work Individual Therapy Note: Rn Burn provided patient with brief individual supportive counseling. Patient presents isolative and withdrawn. Patient does not want to engage in a conversation. Patient is lying in bed with the sheets over his head. SW explored patient's likes such as music, patient was able to interact with this write regarding his favorite song. SW encouraged patient to participate in group and offered to play his favorite song during group. Patient was responsive with this idea and agreed. Rn Burn will remain available to patient and continue to attempt to provide supportive counseling.
[2019-12-14] MEDS: INSULIN REGULAR, HUMAN 300 UNIT/3 ML VIAL SQ PRN ×2 (11:36→21:14)
[2019-12-14 15:22] VITALS: BP 97/66
--- NOTE | 2019-12-14 15:31 | NUR ---
called and spoke with Dr. Patel for the patient toenail , podiatry consult was ordered, Dr. Gordon aware of the consult, will continue follow up and monitor
--- NOTE | 2019-12-14 15:42 | NUR ---
Received patient awake, alert and oriented in his assigned bed. Bed is in low and locked position. Patient has a 1:1 sitter. Patient is cooperative and redirectable. Patient denies SI/HI, denies AH/VH but appears internally preoccupied. Patient appears suspicious of others, he is guarded, withdrawn and isolative, patient has minimal interaction with peers and staff. Patient is adherent with medication, no adverse reaction noted. Patient is able to ambulate independently, able to provide self care and ADL's independently. Educated about impulse control and communicating his needs to staff appropriately. Will continue to monitor.
--- NOTE | 2019-12-14 16:45 | NUR ---
GPS: Nursing Notes: Thought Disorder: Patient awake and responding to his name, impaired judgment, responding to internal by staring at the ceiling, believes that Johnathon Santos still alive, overly demanding at times, episodes of hoarding pencils and bottles of water, gets easily irritable when redirected, needs a lot of prompting to be compliant with his medications, resistant with nursing care at times, unable to formulate a viable plan for self care, continue with treatment plan.
[2019-12-14 20:00] VITALS: BP 121/65
[2019-12-14] MEDS: CLOZAPINE 100 MG TABLET PO SCH (20:39)
[2019-12-14] MEDS: ATORVASTATIN 10 MG TABLET PO SCH (20:39)
[2019-12-14] MEDS: SENNOSIDES 1 TABLET PO SCH (20:40)
--- NOTE | 2019-12-15 00:30 | NUR ---
received to care, isolative, but pleasant upon approach. continues to appear preoccupied by internal stimuli. no agitation, noted. needy, at times. compliant with all medications, except for PRN medications, offered. as of 29, he appears to be asleep. no distress noted. will continue to monitor closely.
--- NOTE | 2019-12-15 05:16 | NUR ---
slept 5.25 hours. continues to sleep. no distress noted.
[2019-12-15] MEDS: BLOOD SUGAR DIAGNOSTIC 1 EACH STRIP VI SCH ×4 (06:48→20:39)
--- NOTE | 2019-12-15 06:49 | NUR ---
refused am accucheck. remains asymptomatic
[2019-12-15 08:00] VITALS: BP 99/57
[2019-12-15] MEDS: CLOZAPINE 25 MG TABLET PO SCH ×2 (09:00→17:20)
[2019-12-15] MEDS: METOPROLOL TARTRATE 25 MG TABLET PO SCH ×2 (09:00→17:00)
[2019-12-15] MEDS: busPIRone 5 MG TABLET PO SCH ×3 (09:01→17:20)
[2019-12-15] MEDS: METFORMIN HCL 850 MG TABLET PO SCH ×2 (09:01→17:20)
[2019-12-15] MEDS: DIVALPROEX 250 MG TABLET.DR PO SCH ×4 (09:01→20:34)
[2019-12-15] MEDS: DOCUSATE SODIUM 100 MG CAPSULE PO SCH (09:01)
[2019-12-15 16:00] VITALS: BP 92/54
[2019-12-15 20:00] VITALS: BP 117/71
[2019-12-15] MEDS: ATORVASTATIN 10 MG TABLET PO SCH (20:34)
[2019-12-15] MEDS: SENNOSIDES 1 TABLET PO SCH (20:35)
[2019-12-15] MEDS: CLOZAPINE 100 MG TABLET PO SCH (20:40)
--- NOTE | 2019-12-15 22:00 | NUR ---
received to care, isolative, but pleasant upon approach. no agitation, noted. compliant with all medications, except for accucheck. as of 2199, he appears to be asleep. no distress noted. will continue to monitor closely.
--- NOTE | 2019-12-16 06:00 | NUR ---
slept 4.5 hours. continues to sleep. no distress noted.
[2019-12-16] MEDS: BLOOD SUGAR DIAGNOSTIC 1 EACH STRIP VI SCH ×4 (06:58→20:07)
--- NOTE | 2019-12-16 07:01 | NUR ---
refused am accucheck. remains asymptomatic
[2019-12-16 07:30] VITALS: BP 119/73
[2019-12-16] MEDS: METOPROLOL TARTRATE 25 MG TABLET PO SCH ×2 (10:15→18:07)
[2019-12-16] MEDS: CLOZAPINE 25 MG TABLET PO SCH ×2 (10:18→18:09)
[2019-12-16] MEDS: busPIRone 5 MG TABLET PO SCH ×3 (10:18→18:07)
[2019-12-16] MEDS: METFORMIN HCL 850 MG TABLET PO SCH ×2 (10:18→18:08)
[2019-12-16] MEDS: DOCUSATE SODIUM 100 MG CAPSULE PO SCH (10:18)
[2019-12-16] MEDS: DIVALPROEX 250 MG TABLET.DR PO SCH ×2 (10:19→13:23)
[2019-12-16 16:00] VITALS: BP 110/69
[2019-12-16] MEDS ORDERED: DIVALPROEX 250 MG TABLET.DR PO SCH (17:00)
[2019-12-16] MEDS: INSULIN REGULAR, HUMAN 300 UNIT/3 ML VIAL SQ PRN ×2 (17:17→20:33)
[2019-12-16] MEDS: DIVALPROEX 500 MG TABLET.DR PO SCH (18:07)
[2019-12-16] MEDS: SENNOSIDES 1 TABLET PO SCH (20:26)
[2019-12-16] MEDS: ATORVASTATIN 10 MG TABLET PO SCH (20:26)
[2019-12-16] MEDS: CLOZAPINE 100 MG TABLET PO SCH (20:39)
--- NOTE | 2019-12-16 20:50 | NUR ---
Received patient in his room, med compliant, interact with staff. No behavioral issue. Will remain in a psych facility for further evaluation and treatment.
[2019-12-17] MEDS: BLOOD SUGAR DIAGNOSTIC 1 EACH STRIP VI SCH ×4 (06:40→20:18)
[2019-12-17 07:30] VITALS: BP 120/75
[2019-12-17] MEDS: DOCUSATE SODIUM 100 MG CAPSULE PO SCH ×2 (08:35→08:45)
[2019-12-17] MEDS: CLOZAPINE 25 MG TABLET PO SCH ×2 (08:35→16:37)
[2019-12-17] MEDS: METFORMIN HCL 850 MG TABLET PO SCH ×2 (08:35→16:37)
[2019-12-17] MEDS: busPIRone 5 MG TABLET PO SCH ×3 (08:35→16:37)
[2019-12-17] MEDS: DIVALPROEX 500 MG TABLET.DR PO SCH ×3 (08:35→16:37)
[2019-12-17] MEDS: METOPROLOL TARTRATE 25 MG TABLET PO SCH ×2 (08:37→16:36)
--- NOTE | 2019-12-17 09:05 | NUR ---
Received patient awake, alert and oriented in his assigned bed. Bed is in low and locked position. Patient is quiet, guarded, and withdrawn to his own room. He is visible on the unit but has minimal interaction with others. Patient denies SI/HI, denies AH/VH. He is medication adherent, no adverse reaction noted. Patient is able to perform self care, ADL's and ambulate independently. Patient is able to tolerate food and fluids. Patient refused AM insulin per sliding scale. Patient educated about importance of insulin and risks of not taking insulin as ordered. Verbalizes understanding but continues to refuse. Patient is showing no signs or symptoms of hyperglycemia at this time. Patient is educated about impulse control and communicating his needs to staff appropriately.
--- NOTE | 2019-12-17 12:30 | NUR ---
Patient refused insulin per sliding scale for blood sugar 164. patient was provided with education about importance of insulin administration and risks of being non compliant. Patient verbalized understanding but continues to refuse. patient is showing no signs or symptoms of hyperglycemia.
--- NOTE | 2019-12-17 13:15 | NUR ---
Social Work Individual Therapy Note: Print Color Operator met with patient to provide brief individual supportive counseling. Patient continues to present withdrawn and isolative. Patient shared that he likes this hospital and is feeling comfortable with the overall staff. Patient is very short and vague with his responses mostly nods his head yes or no. SW assessed patient level of depression and patient stated he is not feeling depressed. Patient has been participating in group intermittently. Print Color Operator will remain available to patient and continue to attempt to provide supportive counseling.
[2019-12-17 16:00] VITALS: BP 102/66
--- NOTE | 2019-12-17 17:17 | NUR ---
Patient refused insulin per sliding scale for blood sugar 139. Patient provided with education about importance of medication adherence, but refuses. Patient is showing no signs or symptoms of hyperglycemia.
[2019-12-17] MEDS: CLOZAPINE 100 MG TABLET PO SCH (20:17)
[2019-12-17] MEDS: ATORVASTATIN 10 MG TABLET PO SCH (20:18)
[2019-12-17] MEDS: SENNOSIDES 1 TABLET PO SCH (20:18)
[2019-12-17 20:25] VITALS: BP 116/75
[2019-12-18] MEDS: BLOOD SUGAR DIAGNOSTIC 1 EACH STRIP VI SCH ×4 (06:30→21:00)
[2019-12-18 07:30] VITALS: BP 105/66
[2019-12-18] MEDS: DIVALPROEX 500 MG TABLET.DR PO SCH ×3 (09:24→17:41)
[2019-12-18] MEDS: busPIRone 5 MG TABLET PO SCH ×3 (09:24→17:41)
[2019-12-18] MEDS: DOCUSATE SODIUM 100 MG CAPSULE PO SCH (09:24)
[2019-12-18] MEDS: METFORMIN HCL 850 MG TABLET PO SCH ×2 (09:25→17:44)
[2019-12-18] MEDS: CLOZAPINE 25 MG TABLET PO SCH ×2 (09:26→17:41)
[2019-12-18] MEDS: METOPROLOL TARTRATE 25 MG TABLET PO SCH ×2 (11:14→17:45)
[2019-12-18] MEDS: INSULIN REGULAR, HUMAN 300 UNIT/3 ML VIAL SQ PRN (12:34)
[2019-12-18 15:23] VITALS: BP 106/65
[2019-12-18] MEDS: SENNOSIDES 1 TABLET PO SCH (20:13)
[2019-12-18] MEDS: ATORVASTATIN 10 MG TABLET PO SCH (20:13)
[2019-12-18] MEDS: CLOZAPINE 100 MG TABLET PO SCH (20:14)
[2019-12-18 20:16] VITALS: BP 106/74
--- NOTE | 2019-12-19 06:25 | NUR ---
Received Pt in the day room watching TV. A+Ox3, Pt is quiet and guarded, gave limited disclosure. Denies SI/HI and states he is feeling "a lot better." Appears internally preoccupied. Compliant with medications, cooperative with staff direction. Focused on snacks, redirection provided. Refused HS accu check. VS stable, denies pain. Compliant with AM Accu check-BS 135. No aggressive or combative behaviors during shift.
[2019-12-19] MEDS: BLOOD SUGAR DIAGNOSTIC 1 EACH STRIP VI SCH ×4 (07:12→20:40)
[2019-12-19 07:30] VITALS: BP 103/63
[2019-12-19] MEDS: CLOZAPINE 25 MG TABLET PO SCH ×2 (08:35→16:40)
[2019-12-19] MEDS: METFORMIN HCL 850 MG TABLET PO SCH ×2 (08:36→16:41)
[2019-12-19] MEDS: busPIRone 5 MG TABLET PO SCH ×3 (08:39→16:37)
[2019-12-19] MEDS: DOCUSATE SODIUM 100 MG CAPSULE PO SCH (08:39)
[2019-12-19] MEDS: DIVALPROEX 500 MG TABLET.DR PO SCH ×3 (08:39→16:38)
[2019-12-19] MEDS: METOPROLOL TARTRATE 25 MG TABLET PO SCH ×2 (08:40→17:00)
[2019-12-19] MEDS: INSULIN REGULAR, HUMAN 300 UNIT/3 ML VIAL SQ PRN ×3 (08:42→20:47)
--- NOTE | 2019-12-19 15:57 | NUR ---
GPS: Received patient AOx2-3, patient on RIESE protocol, patient took his oral medication monitored on cheeking, patient calm and cooperative, took naps , patient denies SI and HI, monitored for unpredictable outburst, patient refused insulin after educating about the risk of having High blood sugar, patient refused his insulin, will continue monitor
[2019-12-19 16:00] VITALS: BP 109/72
[2019-12-19] MEDS: SENNOSIDES 1 TABLET PO SCH (20:30)
[2019-12-19] MEDS: CLOZAPINE 100 MG TABLET PO SCH (20:31)
[2019-12-19] MEDS: ATORVASTATIN 10 MG TABLET PO SCH (20:34)
[2019-12-19 20:46] VITALS: BP 117/76
--- NOTE | 2019-12-20 06:05 | NUR ---
GPS: Remain calm and cooperative with meds and care. no agitation noted. resting in bed comfortably.
[2019-12-20] MEDS: BLOOD SUGAR DIAGNOSTIC 1 EACH STRIP VI SCH ×4 (06:19→20:33)
--- NOTE | 2019-12-20 06:40 | NUR ---
slept 7:45 hrs through the night.
[2019-12-20 07:19] LABS: BASOPHILS % (AUTO) 0.5 % (0.0-2.0); EOSINOPHILS # (AUTO) 0.1 K/uL (0.0-0.7); EOSINOPHILS % (AUTO) 0.8 % (0.0-7.0); HEMATOCRIT 37.7 % (36.7-47.1); HEMOGLOBIN 12.5 g/dL (12.5-16.3); LYMPHOCYTES # (AUTO) 2.2 K/uL (20.0-40.0); LYMPHOCYTES % (AUTO) 25.5 % (20.5-51.5); MEAN CORPUSCULAR HEMOGLOBIN 27.6 uug (23.8-33.4); MEAN CORPUSCULAR HGB CONC 33 g/dL (32.5-36.3); MEAN CORPUSCULAR VOLUME 82.9 fL (73.0-96.2); MONOCYTES # (AUTO) 0.9 K/uL (2.0-10.0); MONOCYTES % (AUTO) 10.1 % (0.0-11.0); NEUTROPHILS # (AUTO) 5.4 K/uL (1.8-8.9); NEUTROPHILS % (AUTO) 63.1 % (38.5-71.5); PLATELET COUNT (AUTO) 212 K/uL (152-348); RED BLOOD CELL COUNT(AUTO) 4.55 MIL/uL (4.06-5.63); WHITE BLOOD COUNT (AUTO) 8.5 K/uL (3.6-10.2)
[2019-12-20 07:30] VITALS: BP 108/72
[2019-12-20] MEDS: DOCUSATE SODIUM 100 MG CAPSULE PO SCH (08:22)
[2019-12-20] MEDS: METFORMIN HCL 850 MG TABLET PO SCH ×2 (08:22→16:44)
[2019-12-20] MEDS: CLOZAPINE 25 MG TABLET PO SCH ×2 (08:22→16:44)
[2019-12-20] MEDS: DIVALPROEX 500 MG TABLET.DR PO SCH ×3 (08:22→16:44)
[2019-12-20] MEDS: busPIRone 5 MG TABLET PO SCH ×3 (08:22→16:44)
[2019-12-20] MEDS: METOPROLOL TARTRATE 25 MG TABLET PO SCH ×2 (08:23→16:45)
--- NOTE | 2019-12-20 13:00 | NUR ---
Received patient this am , awake and alert. VS stable. Medication compliant but refused blood glucose monitoring. Patient has been very calm and passive. Somewhat suspicious of medications. Taking them slowly, inspecting them one by one and counting them. No outbursts or behavior escalation so far. Patient not interested in being with other patients for group. Staying in room most of the day , on and off sleeping. Patient denies SI and HI. Continuing to monitor for safety. No distress noted.
[2019-12-20 16:00] VITALS: BP 91/52
--- NOTE | 2019-12-20 19:00 | NUR ---
RECEIVED PATIENT IN BED, ALERT ORIENTED, NO COMPLAIN OF PAIN AT THIS TIME. PATIENT COOPERATIVE MEDICATIONS AND CARE,CONT TO MONITOR.
[2019-12-20 20:00] VITALS: BP 118/76
[2019-12-20] MEDS: CLOZAPINE 100 MG TABLET PO SCH (20:32)
[2019-12-20] MEDS: SENNOSIDES 1 TABLET PO SCH (20:32)
[2019-12-20] MEDS: ATORVASTATIN 10 MG TABLET PO SCH (20:32)
[2019-12-21] MEDS: BLOOD SUGAR DIAGNOSTIC 1 EACH STRIP VI SCH ×4 (06:25→20:30)
--- NOTE | 2019-12-21 06:58 | NUR ---
PATIENT SLEPT MOST PART OF THE NIGHT, COOPERATIVE WITH CARE, CONT TO MONITOR.
[2019-12-21 07:30] VITALS: BP 107/71
[2019-12-21] MEDS: CLOZAPINE 25 MG TABLET PO SCH ×2 (08:05→16:46)
[2019-12-21] MEDS: DIVALPROEX 500 MG TABLET.DR PO SCH ×3 (08:05→16:46)
[2019-12-21] MEDS: METFORMIN HCL 850 MG TABLET PO SCH ×2 (08:05→16:45)
[2019-12-21] MEDS: busPIRone 5 MG TABLET PO SCH ×3 (08:05→16:46)
[2019-12-21] MEDS: DOCUSATE SODIUM 100 MG CAPSULE PO SCH (08:05)
[2019-12-21] MEDS: METOPROLOL TARTRATE 25 MG TABLET PO SCH ×2 (08:05→16:48)
--- NOTE | 2019-12-21 09:15 | NUR ---
Received patient awake, alert and oriented in his assigned bed. Bed is in low and locked position. Patient is able to communicate his needs to staff. Patient is quiet, withdrawn, and guarded, but has appropriate interaction with staff. Patient denies SI/HI, denies AH/VH, but appears internally preoccupied. Patient is medication adherent, no adverse reaction noted. Patient refusing insulin per sliding scale for BS 149 this AM. Patient educated about the risks of not taking insulin, verbalize understanding but continues to refuse. Patient is showing no signs or symptoms of hyperglycemia. Educated about s/s and instructed to inform staff if these occur. Patient able to ambulate, perform self care and ADL's independently. Will continue to monitor.
[2019-12-21 15:36] VITALS: BP 113/75
--- NOTE | 2019-12-21 18:41 | NUR ---
Patient refusing insulin per sliding scale. States "I don't want it." Patient provided with education about importance of taking insulin as prescribed for hyperglycemia, educated about risks of hyperglycemia, verbalize understanding but continues to refuse. Patient is showing no signs or symptoms of hyperglycemia.
[2019-12-21 20:00] VITALS: BP 112/72
--- NOTE | 2019-12-21 20:00 | NUR ---
RECEIVED PATIENT IN THE DAY ROOM WATCHING TV. PATIENT NOTED A/O X 3. CALM AND PLEASANT UPON APPROACHED. PATIENT NOTED LESS ISOLATIVE, LESS WITHDRAWN. HE IS ABLE TO VERBALIZED FEELINGS. HE DENIES SI/HI/VA/AH, HE IS ABLE TO CFS. HE CONTINUE REQUESTING SNACKS. FLUID PO AND SNACKS WERE GIVEN TO PATIENT. PATIENT IS REASSURED FOR HIS SAFETY. SAFETY AND FALL PRECAUTION IN PLACE. V/S STABLE. WILL CONTINUE TO MONITOR.
--- NOTE | 2019-12-21 20:15 | NUR ---
patient accu-check QHS IS 171. however, patient is refusing insulin sliding scale as ordered per his MD. patient was explained the risk and benefits of insulin compliant, yet ineffective. will continue to monitor.
[2019-12-21] MEDS: ATORVASTATIN 10 MG TABLET PO SCH (20:29)
[2019-12-21] MEDS: SENNOSIDES 1 TABLET PO SCH (20:29)
[2019-12-21] MEDS: CLOZAPINE 100 MG TABLET PO SCH (20:30)
[2019-12-22] MEDS: BLOOD SUGAR DIAGNOSTIC 1 EACH STRIP VI SCH (07:24)
[2019-12-22 08:00] VITALS: BP 101/57
--- NOTE | 2019-12-22 08:31 | NUR ---
Social Work Discharge Note: Patient will be [facility] [place] [address] ([phone]) today. Patient will be provided ambulance transportation at 12pm. [employer] spoke with LAUREL, Rn Clinical Coordinator ([phone]) who stated patient will be accepted to facility today. Patient is alert and oriented x3-4 and is not able to plan for self-care at this time but is willing to continue to accept care provided for him at the facility. Patient denies suicidal or homicidal ideation. Patient is aware and agreeable with discharge plans. Patient presents with normal mood and congruent affect. Patient will continue to follow-up with Psychiatrist Dr. De Luna and Pcu Rn Dr. Long at [facility]. Patient s brother, Jeremy Baxter ([phone]) has been informed of the discharge plans and is aware and agreeable.
[2019-12-22 08:36] VITALS: BP 101/57
[2019-12-22] MEDS: busPIRone 5 MG TABLET PO SCH (08:36)
[2019-12-22] MEDS: DIVALPROEX 500 MG TABLET.DR PO SCH (08:36)
[2019-12-22] MEDS: METOPROLOL TARTRATE 25 MG TABLET PO SCH (08:36)
[2019-12-22] MEDS: DOCUSATE SODIUM 100 MG CAPSULE PO SCH (08:36)
[2019-12-22] MEDS: METFORMIN HCL 850 MG TABLET PO SCH (08:36)
[2019-12-22] MEDS: CLOZAPINE 25 MG TABLET PO SCH (08:37)
--- NOTE | 2019-12-22 08:54 | NUR ---
received patient awake, alert and oriented in his assigned bed. Bed is in low and locked position. Patient is calm, cooperative, and redirectable. Patient is guarded and withdrawn to his room. Patient denies SI/HI, denies AH/VH. Patient is able to communicate his needs to staff appropriately. patient able to provide self care and ADL's independently. Patient provided with education about impulse control. verbalizes understanding. Patient's AM medications: Buspar 5 mg PO. Depakote 500 mg PO, Clozaril 50 mg PO, Glucophage 850 mg PO were administered by this program writer. No adverse reaction ntoed. Lopressor 25 mg PO held due to decreased BP. Colace 100 mg held due to patient refusal of medication.
--- NOTE | 2019-12-22 12:45 | NUR ---
Discharge Note: Patient discharged in stable condition to [facility]. Patient transported by nonemergency ambulance, carried off unit with jay, accompanied by RN. patient discharged with no adverse event. patient's belongings inventoried with patient, belongings sheet signed, and belongings returned to patient. Patient provided with discharge educated about medication, diagnoses, and follow-up care with psychiatrist and computer numeric control setter. Patient able to verbalize understanding of teaching. Patient denies SI/HI.
== END 2019-12-22 12:30 | DRG 885 ==
LOC: ER 17:28 → GPS 21:49
PROVIDERS: ADMIT Psychiatry & Neurology Psychiatry
PROC: 0HBRXZZ Excision of Toe Nail, External Approach (ICD-10-PCS; principal; 2019-12-15)
DX: F25.0 Schizoaffective disorder, bipolar type (principal); E11.65 Type 2 diabetes mellitus with hyperglycemia; G93.41 Metabolic encephalopathy; N39.0 Urinary tract infection, site not specified; F42.9 Obsessive-compulsive disorder, unspecified; E78.5 Hyperlipidemia, unspecified; K21.9 Gastro-esophageal reflux disease without esophagitis; I25.10 Atherosclerotic heart disease of native coronary artery without angina pectoris; I10 Essential (primary) hypertension; Z91.19 Patient's noncompliance with other medical treatment and regimen; B35.1 Tinea unguium; Z79.84 Long term (current) use of oral hypoglycemic drugs; Z79.899 Other long term (current) drug therapy
CPT/HCPCS: 36415; 71045; 80164; 80307; 83735; 84100; 85025; 86403; 87070; 87086; 87400; 93005; 93307; A4663; A9150; C1758; G0480; G0480-TC; J1200; J1630; J1815; J2060; J2358; J3490

== ENCOUNTER 2024-12-14 19:15 | Inpatient (IN) | payer MEDICARE, OTHER ==
[~2024-12-14] VITALS: Ht 167.6 cm; Wt 99.3 kg
[~2024-12-14 19:15] MED LIST: ACET325T53 PO; ATOR10TA PO; BISA10SU12 RC; BLOO-140 IN; DOCU100C36 PO; MAG355OR18 PO; MAGN400O6 PO; METF-441 PO; METO25TA6 PO; NA P133E RC; ONDA4TAB5 PO; SENN-261 PO; TRAM50TA2 PO
[2024-12-14 19:42] LABS: BASOPHILS # (AUTO) 0.1 K/UL (0.0-0.2); BASOPHILS % (AUTO) 0.6 % (0.0-2.0); EOSINOPHILS # (AUTO) 0.3 K/uL (0.0-0.7); EOSINOPHILS % (AUTO) 3.4 % (0.0-7.0); LYMPHOCYTES # (AUTO) 2.4 K/uL (0.8-4.8); LYMPHOCYTES % (AUTO) 28.2 % (20.5-51.5); MEAN CORPUSCULAR HEMOGLOBIN 27.5 uug (23.8-33.4); MEAN CORPUSCULAR HGB CONC 33 g/dL (32.5-36.3); MEAN CORPUSCULAR VOLUME 82.6 fL (73.0-96.2); MONOCYTES # (AUTO) 0.9 K/uL (0.1-1.30); MONOCYTES % (AUTO) 10.3 % (0.0-11.0); NEUTROPHILS # (AUTO) 4.8 K/uL (1.8-8.9); NEUTROPHILS % (AUTO) 57.5 % (38.5-71.5); PLATELET COUNT (AUTO) 223 K/uL (152-348); RED BLOOD CELL COUNT(AUTO) 4.35 MIL/uL (4.06-5.63); RED CELL DISTRIBUTION WIDTH 16.8 % (12.1-16.2); WHITE BLOOD COUNT (AUTO) 8.4 K/uL (3.6-10.2)
[2024-12-14 19:52] LABS: *BILIRUBIN,URIN NEGATIVE (NEGATIVE); *BLOOD, URINE NEGATIVE (NEGATIVE); *CLARITY,URINE CLEAR (CLEAR); *COLOR,URINE YELLOW (YELLOW); *KETONES,URINE 1+ (NEGATIVE); *PROTEIN,URINE NEGATIVE (NEGATIVE); *UROBILINOGEN,URINE 0.2 E.U./dl (NORMAL); DIFFERENTIAL COMMENT 1; LEUKOCYTE ESTERASE ,URINE NEGATIVE (NEGATIVE); NITRITE, URINE NEGATIVE (NEGATIVE); PH,URINE 5.5 (5.0-8.0); RBC,URINE 0-3 /HPF (0-3); UGLUCOSE NEGATIVE (NEGATIVE)
[2024-12-14 19:53] LABS: WBC,URINE 0-3 /HPF (0-3)
[2024-12-14 19:55] LABS: CALCIUM 9.2 mg/dL (8.5-10.1); CARBON DIOXIDE 27 mmol/L (21-32); CHLORIDE 103 mmol/L (98-107); CREATININE 0.8 mg/dL (0.6-1.3); GLUCOSE 120 mg/dL (74-106); POTASSIUM 4.6 mmol/L (3.5-5.1); SODIUM SERUM 141 mmol/L (136-145); UREA NITROGEN, BLOOD 20 mg/dL (7-18)
[2024-12-14 20:00] LABS: ETHANOL < 3 MG/DL (0-10)
[2024-12-14 20:01] LABS: *AMPHETAMINE, URINE NEGATIVE (NEGATIVE); *BARBITURATE, URINE NEGATIVE (NEGATIVE); *BENZODIAZEPINE, URINE NEGATIVE (NEGATIVE); *CANNABINOID, URINE NEGATIVE (NEGATIVE); *COCCAINE, URINE NEGATIVE (NEGATIVE); *OPIATE, URINE NEGATIVE (NEGATIVE); *PHENCYCLIDINE SCREEN,URINE NEGATIVE (NEGATIVE); FENTANYL, URINE NEGATIVE (NEGATIVE)
[2024-12-14 20:08] LABS: THYROID STIMULATING HORMONE 3.975 mIU/mL (0.358-3.740)
[2024-12-14 20:10] LABS: ACETAMINOPHEN < 2.0 ug/mL (10-30); ALANINE AMINOTRANSFERASE 17 U/L (16-63); ALBUMIN 3.7 g/dL (3.4-5.0); ALKALINE PHOSPHATASE 60 U/L (50-136); ASPARTATE AMINOTRANSFERASE 18 U/L (15-37); BILIRUBIN,DIRECT 0.1 mg/dL (0.0-0.2); BILIRUBIN,TOTAL 0.3 mg/dL (0.2-1.0); TOTAL PROTEIN, SERUM 7.6 g/dL (6.4-8.2)
[2024-12-14] MEDS ORDERED: NICO2GUM38 BC (20:46)
[2024-12-14] MEDS ORDERED: PSYL1POW PO (20:46)
[2024-12-14] MEDS ORDERED: METF-442 PO (20:46)
[2024-12-14] MEDS ORDERED: CYAN250T3 PO (20:46)
[2024-12-14] MEDS ORDERED: FERR-56 PO (20:46)
[2024-12-14] MEDS ORDERED: DIVA125C2 PO (20:46)
[2024-12-14] MEDS ORDERED: CLOZ100T32 PO (20:46)
[2024-12-14] MEDS ORDERED: GLIP5TAB13 PO (20:46)
[2024-12-14] MEDS ORDERED: LISI10TA29 PO (20:46)
[2024-12-14 22:00] VITALS: BP 141/76; TEMP 97.8; O2SAT 96
[2024-12-14] MEDS: BLOOD SUGAR DIAGNOSTIC 1 EACH STRIP VI ONE (22:30)
[2024-12-14] MEDS ORDERED: MAGNESIUM HYDROXIDE 30 ML LIQUID UDC PO PRN (22:30)
[2024-12-14] MEDS ORDERED: TEMAZEPAM 7.5 MG CAPSULE PO PRN ×2 (22:30)
[2024-12-14] MEDS ORDERED: ACETAMINOPHEN 325 MG TABLET PO PRN (22:30)
[2024-12-14] MEDS ORDERED: MAG HYDROX/AL HYDROX/SIMETH 30 ML LIQUID UDC PO PRN (22:30)
[2024-12-14] MEDS ORDERED: CLONAZEPAM 0.5 MG TABLET PO PRN (22:30)
[2024-12-15 08:12] VITALS: BP 110/75; TEMP 98; O2SAT 98
[2024-12-15] MEDS: CLONAZEPAM 1 MG TABLET PO PRN (08:20)
[2024-12-15] MEDS: DIVALPROEX SPRINKLE 125 MG CAP.SPRINK PO SCH (08:20)
[2024-12-15] MEDS ORDERED: CLOZAPINE 100 MG TABLET PO SCH (09:00)
[2024-12-15] MEDS ORDERED: CYAN-51 PO (10:47)
[2024-12-15] MEDS ORDERED: ATOR20TA PO (10:47)
[2024-12-15] MEDS ORDERED: PSYL822P6 PO (10:49)
[2024-12-15 16:18] VITALS: BP 121/83; TEMP 98.5; O2SAT 97
[2024-12-15 17:32] LABS: IRON, SERUM 45 ug/dL (50-175)
[2024-12-15 20:00] VITALS: BP 127/73; TEMP 97.9; O2SAT 98
[2024-12-15] MEDS: FERROUS SULFATE 325 MG TABEC PO SCH (20:45)
[2024-12-16] MEDS ORDERED: CLONAZEPAM 1 MG TABLET PO PRN (05:30)
[2024-12-16 07:42] VITALS: BP 119/77; TEMP 98; O2SAT 98
[2024-12-16] MEDS ORDERED: Medication Not On Formulary EA (Metformin Hcl 1,000 MG) PO SCH (09:00)
[2024-12-16] MEDS: CYANOCOBALAMIN 1,000 MCG TABLET PO SCH (09:05)
[2024-12-16] MEDS: CLOZAPINE 100 MG TABLET PO SCH (09:06)
[2024-12-16] MEDS: DOCUSATE SODIUM 100 MG CAPSULE PO SCH (09:06)
[2024-12-16] MEDS: LISINOPRIL 10 MG TABLET PO SCH (09:06)
[2024-12-16] MEDS: METFORMIN HCL 500 MG TABLET PO SCH (17:12)
[2024-12-16 17:27] VITALS: BP 124/71; TEMP 98.4; O2SAT 98
[2024-12-16 19:39] VITALS: BP 141/72; TEMP 97.6; O2SAT 95
[2024-12-17 07:58] VITALS: BP 137/71; TEMP 98; O2SAT 99
[2024-12-17 15:23] VITALS: BP 118/75; TEMP 98; O2SAT 99
[2024-12-17 19:51] VITALS: BP 120/73; TEMP 98.1; O2SAT 96
[2024-12-18 08:10] VITALS: BP 131/83; TEMP 98.1; O2SAT 98
[2024-12-18] MEDS ORDERED: CLOZAPINE 100 MG TABLET PO SCH (09:00)
[2024-12-18] MEDS: CLOZAPINE 100 MG TABLET PO SCH (09:41)
[2024-12-18] MEDS: CLOZAPINE 25 MG TABLET PO SCH (09:51)
[2024-12-18 16:55] VITALS: BP 112/77; TEMP 97.9; O2SAT 98
[2024-12-18 19:58] VITALS: BP 120/76; TEMP 98.1; O2SAT 98
[2024-12-19 07:50] VITALS: BP 97/59; TEMP 98; O2SAT 100
[2024-12-19 15:06] VITALS: BP 130/82; TEMP 98; O2SAT 98
[2024-12-19 20:11] VITALS: BP 96/55; TEMP 97.5; O2SAT 97
[2024-12-20 07:47] VITALS: BP 111/57; TEMP 98; O2SAT 98
[2024-12-20 15:08] VITALS: BP 90/55; TEMP 98; O2SAT 98
[2024-12-20 19:50] VITALS: BP 110/52; TEMP 97.9; O2SAT 96
[2024-12-21 08:10] VITALS: BP 108/58; TEMP 98; O2SAT 98
[2024-12-21 08:53] LABS: BASOPHILS # (AUTO) 0.1 K/UL (0.0-0.2); BASOPHILS % (AUTO) 0.8 % (0.0-2.0); EOSINOPHILS # (AUTO) 0.2 K/uL (0.0-0.7); EOSINOPHILS % (AUTO) 2.8 % (0.0-7.0); HEMATOCRIT 35.5 % (36.7-47.1); HEMOGLOBIN 11.6 g/dL (12.5-16.3); LYMPHOCYTES # (AUTO) 1.9 K/uL (0.8-4.8); LYMPHOCYTES % (AUTO) 24.9 % (20.5-51.5); MEAN CORPUSCULAR HGB CONC 33 g/dL (32.5-36.3); MEAN CORPUSCULAR VOLUME 82.9 fL (73.0-96.2); MONOCYTES # (AUTO) 0.7 K/uL (0.1-1.30); MONOCYTES % (AUTO) 9.8 % (0.0-11.0); NEUTROPHILS # (AUTO) 4.7 K/uL (1.8-8.9); NEUTROPHILS % (AUTO) 61.7 % (38.5-71.5); PLATELET COUNT (AUTO) 247 K/uL (152-348); RED BLOOD CELL COUNT(AUTO) 4.28 MIL/uL (4.06-5.63); RED CELL DISTRIBUTION WIDTH 16.5 % (12.1-16.2); WHITE BLOOD COUNT (AUTO) 7.6 K/uL (3.6-10.2)
[2024-12-21 09:02] LABS: DIFFERENTIAL COMMENT 1
[2024-12-21 16:08] VITALS: BP 105/68; TEMP 98.1; O2SAT 98
[2024-12-21 20:00] VITALS: BP 105/55; TEMP 98.9; O2SAT 98
[2024-12-22 10:18] VITALS: BP 134/77; TEMP 98; O2SAT 98
[2024-12-22 16:37] VITALS: BP 134/77; TEMP 98.5; O2SAT 100
[2024-12-22 19:32] VITALS: BP 113/66; TEMP 98.4; O2SAT 99
[2024-12-23 10:08] VITALS: BP 103/58; TEMP 98.2; O2SAT 99
[2024-12-23 15:10] VITALS: BP 100/56; TEMP 98.2; O2SAT 99
[2024-12-23 19:49] VITALS: BP 101/55; TEMP 98.1; O2SAT 98
[2024-12-24 08:05] VITALS: BP 126/57; TEMP 98; O2SAT 96
[2024-12-24 15:22] VITALS: BP 90/52; TEMP 98; O2SAT 98
[2024-12-24 21:28] VITALS: BP 100/69; TEMP 98; O2SAT 99
[2024-12-25 08:04] VITALS: BP 120/68; TEMP 98.3; O2SAT 98
[2024-12-25 08:36] VITALS: BP 120/68
== END 2024-12-25 14:50 | DRG 885 ==
LOC: ER 19:15 → GPS 21:49
PROVIDERS: ADMIT Psychiatry & Neurology Psychiatry; ATTEND Internal Medicine
DX: F25.0 Schizoaffective disorder, bipolar type (principal); D68.59 Other primary thrombophilia; E11.9 Type 2 diabetes mellitus without complications; E78.5 Hyperlipidemia, unspecified; Z79.84 Long term (current) use of oral hypoglycemic drugs; I25.10 Atherosclerotic heart disease of native coronary artery without angina pectoris; K21.9 Gastro-esophageal reflux disease without esophagitis; E66.01 Morbid (severe) obesity due to excess calories; Z68.35 Body mass index [BMI] 35.0-35.9, adult; D50.9 Iron deficiency anemia, unspecified; I10 Essential (primary) hypertension; J44.9 Chronic obstructive pulmonary disease, unspecified; Z79.899 Other long term (current) drug therapy; R26.0 Ataxic gait
CPT/HCPCS: 36415; 83550; 84443; 85025; 93005; 98960; A4663; G0480